=== PATIENT | female | born 1950 | race Caucasian/White ===

== ENCOUNTER → 2024-03-01 07:02 | Outpatient (CLI) | payer MEDICARE, SELFPAY ==
[2024-03-01 07:56] LABS: Add Manual Diff / Slide Review NO; Basophils Absolute Auto 0 /uL (0-100); Basophils Percent Auto 0.2 % (0-2); Eosinophils Absolute Auto 200 /uL (0-450); Eosinophils Percent Auto 4.5 % (2-4); Hematocrit 37.5 % (36-46); Hemoglobin 12.8 g/dL (12.0-16.0); Lymphocytes Absolute Auto 1200 /uL (1100-4500); Lymphocytes Percent Auto 29.3 % (25-40); Mean Corpuscular HGB Conc 34.2 % (30-36); Mean Corpuscular Hemoglobin 31.3 PG (26-34); Mean Corpuscular Volume 91.5 fL (80-100); Monocytes Absolute Auto 500 /uL (0-900); Monocytes Percent Auto 11.5 % (3-14); Neutrophils Absolute Auto 2300 /uL (1500-7000); Neutrophils Percent Auto 54.5 % (50-75); Platelet Count 211 X10^3/uL (150-400); Red Cell Distribution Width 13.1 % (11.6-14.8); White Blood Cell Count 4.2 X10^3/uL (4.5-11.0)
[2024-03-01 08:20] LABS: Creatinine Urine Random 156.02 mg/dL
[2024-03-01 08:23] LABS: Alanine Aminotransferase 24 IU/L (<35); Albumin 4.2 g/dL (3.5-5.0); Albumin Globulin Ratio 1.6 (1.0-2.8); Alkaline Phosphatase 66 U/L (38-126); Aspartate Aminotransferase 26 IU/L (14-36); BUN Creatinine Ratio 15.2 (6-22); Bilirubin Total 1.5 mg/dL (0.2-1.3); Blood Urea Nitrogen 12 mg/dL (7-17); Calcium 9.3 mg/dL (8.4-10.2); Carbon Dioxide 28 mmol/L (22-32); Chloride 102 mmol/L (98-107); Cholesterol 105 mg/dL (140-199); Estimated Glomerular Filt Rate > 60 mL/min (>60); Globulin 2.6 g/dL (1.7-4.1); Glucose 136 mg/dL (80-110); HDL Cholesterol 49 mg/dL (40-60); HEMOLYSIS < 15 (0-50); LDL Cholesterol Calculated 36 mg/dL (<100); Potassium 3.9 mmol/L (3.4-5.1); Sodium 139 mmol/L (137-145); Total Protein 6.8 g/dL (6.3-8.2); Triglycerides 100 mg/dL (35-150)
[2024-03-01 10:52] LABS: Hemoglobin A1C% w Est Avg Glu 6.4 % (4.0-6.0)
== END ==
PROVIDERS: PCP Family Medicine; Referring Provider Family Medicine; Visit Provider Family Medicine
DX: E11.9 Type 2 diabetes mellitus without complications (principal); I25.10 Atherosclerotic heart disease of native coronary artery without angina pectoris; E78.5 Hyperlipidemia, unspecified
CPT/HCPCS: 36415; 80053; 80061; 82043; 82570; 83036; 85025

== ENCOUNTER → 2024-06-07 07:59 | Outpatient (CLI) | payer MEDICARE, SELFPAY ==
[2024-06-07 09:34] LABS: Add Manual Diff / Slide Review NO; Basophils Absolute Auto 0 /uL (0-100); Basophils Percent Auto 0.3 % (0-2); Eosinophils Absolute Auto 200 /uL (0-450); Eosinophils Percent Auto 4.6 % (2-4); Hematocrit 38.6 % (36-46); Hemoglobin 12.9 g/dL (12.0-16.0); Lymphocytes Absolute Auto 1100 /uL (1100-4500); Lymphocytes Percent Auto 23.6 % (25-40); Mean Corpuscular HGB Conc 33.6 % (30-36); Mean Corpuscular Hemoglobin 30.8 PG (26-34); Mean Corpuscular Volume 91.7 fL (80-100); Monocytes Absolute Auto 400 /uL (0-900); Monocytes Percent Auto 7.6 % (3-14); Neutrophils Absolute Auto 3000 /uL (1500-7000); Neutrophils Percent Auto 63.9 % (50-75); Platelet Count 211 X10^3/uL (150-400); Red Cell Distribution Width 13.3 % (11.6-14.8); White Blood Cell Count 4.7 X10^3/uL (4.5-11.0)
[2024-06-07 10:08] LABS: Hemoglobin A1C% w Est Avg Glu 6.1 % (4.0-6.0)
[2024-06-07 10:17] LABS: Alanine Aminotransferase 23 IU/L (<35); Albumin 4.2 g/dL (3.5-5.0); Albumin Globulin Ratio 1.7 (1.0-2.8); Alkaline Phosphatase 58 U/L (38-126); Aspartate Aminotransferase 26 IU/L (14-36); BUN Creatinine Ratio 21.4 (6-22); Bilirubin Total 1.2 mg/dL (0.2-1.3); Blood Urea Nitrogen 15 mg/dL (7-17); Calcium 9.3 mg/dL (8.4-10.2); Carbon Dioxide 29 mmol/L (22-32); Chloride 101 mmol/L (98-107); Estimated Glomerular Filt Rate > 60 mL/min (>60); Globulin 2.5 g/dL (1.7-4.1); Glucose 128 mg/dL (80-110); HEMOLYSIS < 15 (0-50); Potassium 4.6 mmol/L (3.4-5.1); Sodium 138 mmol/L (137-145); Total Protein 6.7 g/dL (6.3-8.2)
[2024-06-07 11:01] LABS: Creatinine Urine Random 64.03 mg/dL
[2024-06-07 11:07] LABS: Microalbumin Urine Random 0.7 mg/dL (0-1.6)
== END ==
PROVIDERS: PCP Family Medicine; Referring Provider Family Medicine; Visit Provider Family Medicine
DX: E11.9 Type 2 diabetes mellitus without complications (principal); I25.10 Atherosclerotic heart disease of native coronary artery without angina pectoris; E78.5 Hyperlipidemia, unspecified
CPT/HCPCS: 36415; 80053; 82043; 82570; 83036; 85025

== ENCOUNTER → 2024-08-25 09:26 | Outpatient (CLI) | payer MEDICARE, SELFPAY ==
--- NOTE | 2024-08-25 09:27 | DI.RAD.S_ITS ---
PROCEDURE: XR FINGER RT MIN 2V INDICATIONS: Right finger pain TECHNIQUE: AP hand, 2 views of the 3rd finger(s) acquired. COMPARISON: None. FINDINGS: Bones: No fractures or dislocations. No suspicious bony lesions. Interphalangeal joint space narrowing with osteophytosis. Soft tissues: No suspicious soft tissue calcifications. Chondrocalcinosis. 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 Chondrocalcinosis, which can be seen in the setting of CPPD, aging, and parathyroid disorders. Dictated by: Aron Ruff M.D. on 08/25/2024 at 12:08 Approved by: Aron Ruff M.D. on 08/25/2024 at 12:09
== END ==
PROVIDERS: PCP Family Medicine; Referring Provider Family Medicine; Visit Provider Family Medicine
DX: M19.041 Primary osteoarthritis, right hand (principal); M11.241 Other chondrocalcinosis, right hand; M79.644 Pain in right finger(s)
CPT/HCPCS: 73140

== ENCOUNTER → 2024-09-19 11:23 | Outpatient (CLI) | payer MEDICARE, SELFPAY ==
[2024-09-19 12:33] LABS: Influenza A - CEPHEID Flu A NEGATIVE (NEGATIVE); Influenza B - CEPHEID Flu B NEGATIVE (NEGATIVE); Respiratory Syncytial Virus Negative (Negative)
[2024-09-19 12:40] LABS: COVID-19 CEPHEID 4-PLEX PCR Negative (Negative)
== END ==
PROVIDERS: PCP Family Medicine; Visit Provider Physician Assistant
DX: R05.9 Cough, unspecified (principal)
CPT/HCPCS: 0241U

== ENCOUNTER → 2024-10-12 10:15 | Outpatient (CLI) | payer MEDICARE, SELFPAY | PROVIDERS: PCP Family Medicine; Visit Provider Student in an Organized Health Care Education/Training Program | DX: J02.9 Acute pharyngitis, unspecified (principal) | CPT/HCPCS: 87070 ==

== ENCOUNTER → 2024-10-12 11:00 | Outpatient (CLI) | payer MEDICARE, SELFPAY ==
--- NOTE | 2024-10-12 11:02 | DI.RAD.S_ITS ---
PROCEDURE: XR CHEST 2V INDICATIONS: 3wk prod cough+wheeze/squeak L ledezma TECHNIQUE: 2 views of the chest were acquired. COMPARISON: None. FINDINGS: Surgical changes and devices: None. Lungs and pleura: Lungs are clear. No pleural effusions or pneumothorax. Mediastinum: Mediastinal contours are normal. Heart size is normal. Bones and chest wall: No suspicious bony abnormalities. Soft tissues appear unremarkable. IMPRESSION: No acute cardiopulmonary abnormality is seen. CT chest could be considered for further evaluation. Dictated by: Ervin Roblero M.D. on 10/12/2024 at 11:15 Approved by: Ervin Roblero M.D. on 10/12/2024 at 11:16
== END ==
PROVIDERS: PCP Family Medicine; Referring Provider Family Medicine; Visit Provider Student in an Organized Health Care Education/Training Program
DX: J02.9 Acute pharyngitis, unspecified (principal); R05.8 Other specified cough
CPT/HCPCS: 71046; 87070

== ENCOUNTER → 2024-10-17 14:29 | Outpatient (CLI) | payer MEDICARE, SELFPAY ==
--- NOTE | 2024-10-17 14:30 | DI.MG.S_ITS ---
MM screening mammo BI: 10/17/2024. BI-RADS: 1 CLINICAL: 74-year old female for bilateral screening mammogram. Tyrer-Cuzick lifetime risk of 2.1%. No personal or first-degree family history of breast cancer. PRIOR EXAMS: No prior examinations available. MAMMOGRAPHY TECHNIQUE: 2D and 3D (tomosynthesis) digital mammographic views obtained, with additional images as needed for full coverage. Current study was also evaluated with a Computer Aided Detection (CAD) system. DENSITY B. There are scattered areas of fibroglandular density. MAMMOGRAPHY FINDINGS Bilateral: No suspicious mass, asymmetry, microcalcification, or other abnormality seen. IMPRESSION: * No evidence of malignancy. RECOMMENDATIONS Bilateral * Annual screening mammography. OVERALL ASSESSMENT CATEGORY BI-RADS-1: Negative. The [employer] recommends annual screening mammography beginning at age 40 for women with average risk of breast cancer. ELECTRONICALLY SIGNED: Thu Herr M.D. on 10/17/2024 at 05:51:00 PM PT Interpreting Station ID: [id number]
== END ==
PROVIDERS: PCP Family Medicine; Referring Provider Family Medicine; Visit Provider Family Medicine
DX: Z12.31 Encounter for screening mammogram for malignant neoplasm of breast (principal)
CPT/HCPCS: 77063; 77067

== ENCOUNTER → 2024-12-04 08:36 | Outpatient (CLI) | payer MEDICARE, SELFPAY ==
[2024-12-04 09:10] LABS: Add Manual Diff / Slide Review NO; Basophils Absolute Auto 0 /uL (0-100); Basophils Percent Auto 0.4 % (0-2); Eosinophils Absolute Auto 300 /uL (0-450); Eosinophils Percent Auto 5.2 % (2-4); Hematocrit 38.8 % (36-46); Hemoglobin 12.8 g/dL (12.0-16.0); Lymphocytes Absolute Auto 1500 /uL (1100-4500); Lymphocytes Percent Auto 28.9 % (25-40); Mean Corpuscular HGB Conc 33.1 % (30-36); Mean Corpuscular Hemoglobin 30.6 PG (26-34); Mean Corpuscular Volume 92.6 fL (80-100); Monocytes Absolute Auto 400 /uL (0-900); Monocytes Percent Auto 7.9 % (3-14); Neutrophils Absolute Auto 3000 /uL (1500-7000); Neutrophils Percent Auto 57.6 % (50-75); Platelet Count 209 X10^3/uL (150-400); Red Blood Cell Count 4.19 X10^6/uL (4.0-5.2); Red Cell Distribution Width 13.4 % (11.6-14.8); White Blood Cell Count 5.2 X10^3/uL (4.5-11.0)
[2024-12-04 09:17] LABS: Hemoglobin A1C% w Est Avg Glu 5.9 % (4.0-6.0)
[2024-12-04 09:39] LABS: Alanine Aminotransferase 18 IU/L (<35); Albumin 4.3 g/dL (3.5-5.0); Albumin Globulin Ratio 1.7 (1.0-2.8); Alkaline Phosphatase 52 U/L (38-126); Aspartate Aminotransferase 26 IU/L (14-36); BUN Creatinine Ratio 23.5 (6-22); Bilirubin Total 1.2 mg/dL (0.2-1.3); Blood Urea Nitrogen 16 mg/dL (7-17); Calcium 9.3 mg/dL (8.4-10.2); Carbon Dioxide 30 mmol/L (22-32); Chloride 102 mmol/L (98-107); Cholesterol 126 mg/dL (140-199); Estimated Glomerular Filt Rate > 60 mL/min (>60); Globulin 2.5 g/dL (1.7-4.1); Glucose 99 mg/dL (70-99); HDL Cholesterol 61 mg/dL (40-60); HEMOLYSIS < 15 (0-50); LDL Cholesterol Calculated 47 mg/dL (<100); Potassium 4.8 mmol/L (3.4-5.1); Sodium 139 mmol/L (137-145); Total Protein 6.8 g/dL (6.3-8.2); Triglycerides 88 mg/dL (35-150)
== END ==
LOC: LAB 08:37
PROVIDERS: PCP Family Medicine; Referring Provider Family Medicine; Visit Provider Family Medicine
DX: D72.819 Decreased white blood cell count, unspecified (principal); E11.9 Type 2 diabetes mellitus without complications; R17 Unspecified jaundice; I25.10 Atherosclerotic heart disease of native coronary artery without angina pectoris; E78.5 Hyperlipidemia, unspecified
CPT/HCPCS: 36415; 80053; 80061; 83036; 85025

== ENCOUNTER → 2024-12-13 08:29 | Outpatient (CLI) | payer MEDICARE, SELFPAY ==
--- NOTE | 2024-12-13 08:43 | DI.CT.S_ITS ---
PROCEDURE: CT LUNG LOW DOSE SCREENING INDICATIONS: hx of tobacco use TECHNIQUE: Noncontrast 2.0-2.5 mm thick sections acquired from the pulmonary apices to the posterior costophrenic angles. 7 mm thick axial MIP, and 5 mm coronal and sagittal reformats were then acquired. For radiation dose reduction, the following was used: automated exposure control, adjustment of mA and/or kV according to patient size. COMPARISON: None. FINDINGS: Image quality: Diagnostic. Lower Neck: No enlarged lymph nodes. Thyroid: No thyroid nodules which require sonographic follow up, per consensus guidelines. Axillae: No enlarged lymph nodes. Chest Wall: Unremarkable. Bones: Unremarkable. Lungs and Pleura: No pneumothorax or pleural effusions. 2-3 mm nodules at the right major fissure. Heart: Heart size is normal. No pericardial effusion. Thoracic Vessels: The aorta and pulmonary arteries demonstrate normal size. Mediastinum and Sanjana: No enlarged lymph nodes. Esophagus: No wall thickening. No hiatal hernia. Upper Abdomen: Visualized upper abdomen solid organs and bowel loops appear normal. IMPRESSION: 2-3 mm right nodules, nonspecific. LUNG-RADS 2; continued annual screening, if eligible. Clinically Significant Non-pulmonary Findings: None. Dictated by: Marcelle Galvez M.D. on 12/13/2024 at 12:57 Approved by: Marcelle Galvez M.D. on 12/13/2024 at 13:04
== END ==
PROVIDERS: PCP Family Medicine; Referring Provider Family Medicine; Visit Provider Family Medicine
DX: Z12.2 Encounter for screening for malignant neoplasm of respiratory organs (principal); F17.210 Nicotine dependence, cigarettes, uncomplicated; R91.8 Other nonspecific abnormal finding of lung field
CPT/HCPCS: 71271

== ENCOUNTER → 2024-12-19 11:18 | Outpatient (CLI) | payer MEDICARE, SELFPAY | LOC: RESP 11:18 | PROVIDERS: PCP Family Medicine; Referring Provider Family Medicine; Visit Provider Family Medicine | DX: Z87.09 Personal history of other diseases of the respiratory system (principal); Z87.891 Personal history of nicotine dependence; J98.8 Other specified respiratory disorders; R94.2 Abnormal results of pulmonary function studies | CPT/HCPCS: 94060; 94726; 94729 ==

== ENCOUNTER → 2025-05-22 14:36 | Outpatient (CLI) | payer MEDICARE, SELFPAY ==
--- NOTE | 2025-06-07 15:44 | DIAB.MNT ---
Initial Diabetes Medical Nutrition Therapy Assessment Name: Romero Candelaria Date: 05/22/25 Time: 3-340p Dx: Type II Diabetes Provider: Joce Romero presents for initial DM visit. States she has been on Mounjaro GLP1 since October 2024. Recent hgA1c of 5.9%, in goal. States she really wants to know if she is making appropriate food choices. Endorses reduced appetite for 3 days after injection, but then appetite seems to return. Regardless, BG are often in goal with >70% in range. States weight loss has been slow to none at times. Endorses some stress over the last 2 years. Diet recall: 6-9a: oats 1/2c cooked OR 1/2 sourdough slice with pb OR eggs and veg 1130-2p: half burger with sweet potato fries OR left overs OR 1/2 sandwich 4p: few bites of beef OR chx with carrots, pumpkin, sweet potato OR 2oz chx with salad sn: pinch of shoestring snack OR pb with 3 pretzels diet soda is most of her fluids water little Anthropometrics: Ht: 63 Wt: 163# 03/2025 PCP--- today reports 155# Weight history: Physical Activity: 0497-2044 steps per day, mostly ADLs. Uses elliptical 5 min BID 3x per week. use to do water aerobics and chair exercises. Self-Monitoring Blood Glucose: Has been wearing CGM for <7 days. Numbers are well within ADA goals for TIR. TIR: <1% very high 7% high 92% in range <1% low 0% very low avmg/dl std dev: 30mg/dl variance: 22.3% Date Pre Post Pre Post Pre Post HS Diabetes Medications: 12.5 Tirzepatide weekly Pertinent Labs: hgA1c; 5.9% Past Medical History: (Last Reviewed 10/12/24 @ 11:50 by Marcela Dunbar PA-C) History of COPD Sinusitis URI (upper respiratory infection) Nutrition Rx: Carbohydrates: Meal:30g Snack:15-30g Nutrition Diagnosis: - Physical inactivity r/t limited exercise aeb pt report Intervention: This participant was very receptive. Provided appropriate educational handouts. Discussed the following topics: Completed intake assessment. Plate Method, meal timing, pairing macronutrients for satiety Recommended servings Role of physical activity in weight management and following provider guidelines for safety Discussed overall, diet is very balanced and portions are either in rec or below rec portion. Would not advise smaller portions, but rather an increase in safe activity. Also encouraged more water intake over diet soda Potential for tracking food if that is helpful vs harmful to her Created SMART goals for patient self-care and success. Goals: Try water aerobics Aim for balanced meals Try to replace more diet soda with water Follow-up: YANA JACKSON follow-up prn per pt retoshia [place] RDN, [facility] Certified Diabetes Care and [employer] P: [phone] Thank you for this referral
== END ==
LOC: DIET 14:36
PROVIDERS: PCP Family Medicine; Referring Provider Family Medicine
DX: E11.9 Type 2 diabetes mellitus without complications (principal); Z71.3 Dietary counseling and surveillance; Z79.85 Long-term (current) use of injectable non-insulin antidiabetic drugs
CPT/HCPCS: 97802

== ENCOUNTER 2025-05-27 19:28 | Inpatient (IN) | payer MEDICARE, SELFPAY ==
[2025-05-27] VITALS (28 sets, daily range): BP systolic 96–153; BP diastolic 50–64; PULSE 83–124; RESP 13–30; TEMP 37–38.2; O2SAT 85–98; BMI 27.4
--- NOTE | 2025-05-27 19:53 | EKG_ITS ---
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
--- NOTE | 2025-05-27 19:54 | DI.CT.S_ITS ---
PROCEDURE: CT ABDOMEN PELVIS W CON INDICATIONS: Abdominal pain, sepsis TECHNIQUE: After the administration of intravenous contrast, axial sections acquired from the lung bases to the pubic symphysis. Coronal and sagittal reformats were performed. For radiation dose reduction, the following was used: automated exposure control, adjustment of mA and/or kV according to patient size. COMPARISON: None. FINDINGS: Image quality: Diagnostic. Lower Chest: Partially visualized right lower lobe ground-glass opacity. ABDOMEN: Liver: No solid mass. Gallbladder: No radiopaque gallstones or wall thickening. Biliary ducts: No biliary dilation. Pancreas: No ductal dilation. Spleen: Size is within normal limits. Adrenal Glands: No adrenal nodules. Kidneys and Ureters: No hydronephrosis. No solid mass. No complex renal cystic lesion which requires follow up. Stomach and Bowel: Normal colonic caliber, without significant wall thickening. Colonic diverticulosis without evidence of acute diverticulitis. Fluid filled small bowel loops in the lower abdomen. Peritoneum: No abnormal intraperitoneal fluid. No free air. Ventral Wall: No significant ventral hernia. Abdominal Nodes: No retroperitoneal or mesenteric adenopathy by size criteria. Vessels: Aorta and inferior vena cava are normal in size. PELVIS: Pelvic Organs: Unremarkable. Bladder: No bladder wall thickening, accounting for underdistention. Pelvic Nodes: No enlarged lymph nodes. Miscellaneous: Small bilateral fat containing inguinal hernias. Bones: No aggressive osseous abnormality. Degenerative changes are present. IMPRESSION: No acute process in the abdomen or pelvis. Fluid-filled small bowel loops in the lower abdomen; findings may be seen with mild enterocolitis although no substantial wall thickening or bowel abnormality is visualized. Partially visualized right lower lobe ground-glass opacity. Recommend dedicated evaluation with CT chest. Dictated by: Debbie Whatley M.D. on 05/27/2025 at 23:11 Approved by: Debbie Whatley M.D. on 05/27/2025 at 23:16
--- NOTE | 2025-05-27 19:54 | DI.RAD.S_ITS ---
PROCEDURE: XR CHEST 1V INDICATIONS: Sepsis TECHNIQUE: One view of the chest was acquired. COMPARISON: [facility], CR, XR CHEST 2V, 10/12/2024, 10:59. FINDINGS: Surgical changes and devices: None. Lungs and pleura: Right lower lung zone consolidative opacity. No substantial pleural effusion or pneumothorax. Mediastinum: Mediastinal contours appear normal. Heart size is normal. Bones and chest wall: No suspicious bony lesions. Overlying soft tissues appear unremarkable. IMPRESSION: Right lower lung zone consolidative opacity. Dictated by: Debbie Whatley M.D. on 05/27/2025 at 23:18 Approved by: Debbie Whatley M.D. on 05/27/2025 at 23:19
--- NOTE | 2025-05-27 19:55 | ED_ITS ---
HPI - General Adult General Chief complaint: Weakness Stated complaint: Pain everywhere, headache, stomach ache, fatigue Time Seen by Provider: 05/27/25 19:52 Source: patient and family Mode of arrival: Wheelchair History of Present Illness HPI narrative: Patient is a 74-year-old female with a past medical history of hyperlipidemia, diabetes, hypertension, comes into the ED from home for evaluation of generalized malaise, generalized muscle aches ongoing persistent for the past 2 days. States that pain to her whole-body started yesterday. She states that she also started developing abdominal pain today, she states that she feels too tired and weak and her entire body hurts which is what brought her into the ED. She denies any true headache visual disturbances chest pain shortness of breath nausea and vomiting or any other GI/ symptoms time. Patient states that she does have a remote appendectomy. Otherwise she denies any recent travel no known sick contacts Related Data Home Medications ?Medication ?Instructions ?Recorded ?Confirmed aspirin 81 mg tablet,delayed 81 mg PO DAILY 10/03/2107/27/24 release (Adult Aspirin Regimen) latanoprost 0.005 % eye drops 1 drp EYE-BOTH DAILY 03/2105/27/25 tizanidine 2 mg capsule 2 mg PO Q8H PRN muscle spasm 02/04/24 05/27/25 brimonidine 0.2 % eye drops 1 drp EYE-BOTH DAILY 03/0705/27/25 Previous Rx's ?Medication ?Instructions ?Recorded loratadine 10 mg tablet (Claritin) 10 mg PO DAILY #14 tabs 10/03/21 blood-glucose sensor (Dexcom G7 #12 ea 04/20/24 Sensor device) albuterol sulfate 1.25 mg/3 mL 1.25 mg (3 mL) inhalati on Q4-6H 06/12/24 solution for nebulization PRN sob #90 mL albuterol sulfate 90 mcg/actuation 1 inh inhalation Q4 -6H PRN 06/16/24 aerosol inhaler bronchospasm #8.5 grams rosuvastatin 20 mg tablet 20 mg PO DAILY #90 tabs 09/26 10/20 Nebulizer with tubing #1 ea 02/06/25 zolpidem 5 mg tablet 5 mg PO BEDTIME PRN insomnia #90 03/22/25 tabs fluticasone furoate 50 1 inh inhalation Q24H #60 ea 04/10/25 mcg-vilanterol 25 mcg/dose inhalation powder (Breo Ellipta) doxepin 3 mg tablet 3 mg PO BEDTIME PRN sleep #3 0 tabs 04/23/25 fluticasone propionate 220 1 puff inhalation BID #12 g davin 05/09/25 mcg/actuation HFA aerosol inhaler tirzepatide 12.5 mg/0.5 mL 12.5 mg (0.5 mL) SUBCUT QWE EK #2 mL 05/21/25 subcutaneous pen injector Allergies Allergy/AdvReac Type Severity Reaction Status Date / Time No Known Drug Allergies Allergy Verified 05/27/25 19:39 Review of Systems Review of Systems Narrative: General: Positive generalized weakness Denies fever, chills, weight loss HEENT: Denies headache, eye drainage, eye irritation, head trauma, sore throat, voice change Cardiovascular: Denies any chest pain, palpitations, tachycardia Respiratory: Denies any shortness of breath, cough, wheeze, stridor GI/: Positive abdominal pain, denies nausea, vomiting, diarrhea, bright red blood per rectum, melanotic stools, urinary frequency, urinary retention, dysuria, hematuria MSK: Positive myalgias Skin: Denies any rashes, lesions, discoloration Neuro: Denies any headache, lightheadedness, dizziness, fainting, weakness Psych: Denies SI/HI Patient History Medical History (Updated 05/27/25 @ 23:50 by Gustavo Jaime DO) Sinusitis History of COPD URI (upper respiratory infection) Surgical History (Updated 02/09/25 @ 10:17 by Ebonie Hobson MD) History of bladder surgery History of appendectomy Social History Smoking Status: Never smoker Smoking Status: Never smoker Exam Narrative Exam Narrative: General: Cooperative, well-developed, not in acute distress HEENT: Normocephalic, atraumatic, PERRLA, normal sclera, eyelids normal Neck: Active full range of motion, atraumatic Chest: Normal to inspection, negative crepitus, no overlying erythema ecchymosis Respiratory: Normal respiratory effort, not in acute respiratory distress, clear to auscultation bilaterally negative cough, wheeze, tachypnea, rhonchi, rales Cardiology: Regular rate rhythm negative gallop, murmur, rubs GI/: Mild tenderness to palpation abdomen diffuse, soft, non rigid, normal to inspection, exam deferred MSK: Full active range of motion in all 4 extremities, atraumatic, no tenderness to palpation of any bony prominences Skin: No rashes or lesions noted Neuro: Alert awake oriented x3, moves all 4 extremities spontaneously, cranial nerves intact, able to answer all questions appropriately follows commands appropriately Psych: Cooperative, negative suicidal or homicidal ideations Initial Vital Signs Initial Vital Signs: Vital Signs Temperature 100.8 F H 05/27/25 19:42 Pulse Rate 124 H 05/27/25 19:42 Respiratory Rate 20 05/27/25 19:42 Blood Pressure 133/60 05/27/25 19:42 Pulse Oximetry 92 05/27/25 19:42 Oxygen Delivery Method Room Air 05/27/25 19:42 Course Orders Ordered: ED Orders 05/27/25 19:53 Respiratory Panel (Film Array) Stat EKG-12 Lead Stat 05/27/25 19:54 CT abdomen pelvis w con Stat CXR [XR chest 1V] Stat 05/27/25 20:04 Complete Blood Count AUTO DIFF Stat Comprehensive Metabolic Panel Stat Lactate (Lactic Acid) Stat Lipase Stat MAG [Magnesium] Stat NT-proBNP (BNP-Adult 18+) Stat PTT Partial Thromboplastin [place] Stat Procalcitonin Stat Prothrombin Time INR Stat Troponin & CK Cardiac Panel Stat 05/27/25 20:15 Blood Culture Stat 05/27/25 22:00 Urinalysis and Microscopic Stat Discontinued Medications Sodium Chloride (Normal Saline 0.9%) 2,109.21 mls @ 1,406.14 mls/hr 30 ml/kg infuse over 90 min (2109.21 ml) IV NOW ONE Stop: 05/27/25 21:22 Last Infusion: 05/27/25 22:50 Dose: Infused Documented By: Admin: 05/27/25 20:13 Dose: 1,406.14 mls/hr Documented By: BZ Acetaminophen (Ofirmev) 1,000 mg in 100 mls @ 400 mls/hr IV NOW ONE Stop: 05/27/25 20:37 Last Infusion: 05/27/25 22:10 Dose: Infused Documented By: Admin: 05/27/25 21:49 Dose: 400 mls/hr Documented By: BZ Ceftriaxone Sodium 1,000 mg/ (Sodium Chloride) 100 mls @ 200 mls/hr IV NOW ONE Stop: 05/27/25 23:31 Doxycycline Hyclate 100 mg/ (Sodium Chloride) 100 mls @ 100 mls/hr IV NOW ONE Stop: 05/27/25 23:31 Morphine Sulfate (Morphine 4 Mg/Ml Inj) 4 mg IV NOW ONE Stop: 05/27/25 20:07 Last Admin: 05/27/25 20:19 Dose: 4 mg Documented By: MALIKA Ondansetron HCl (Ondansetron 4 Mg/2 Ml Inj) 4 mg IV NOW ONE Stop: 05/27/25 20:07 Last Admin: 05/27/25 20:19 Dose: 4 mg Documented By: MALIKA Vital Signs Vital signs: Vital Signs - 8 hr 05/27/25 19:42 05/27/25 20:07 05/27/25 20:07 Temperature 100.8 F H Pulse Rate 124 H 120 H Respiratory Rate 20 24 Blood Pressure 133/60 146/63 H Pulse Oximetry 92 92 Oxygen Delivery Method Room Air Oxygen Flow Rate 05/27/25 20:09 05/27/25 20:09 05/27/25 20:17 Temperature Pulse Rate 121 H Respiratory Rate 19 Blood Pressure 133/64 125/60 Pulse Oximetry 93 Oxygen Delivery Method Oxygen Flow Rate 05/27/25 20:17 05/27/25 20:20 05/27/25 20:20 Temperature Pulse Rate 118 H 114 H Respiratory Rate 20 28 H Blood Pressure 153/64 H Pulse Oximetry 92 93 Oxygen Delivery Method Oxygen Flow Rate 05/27/25 20:30 05/27/25 20:30 05/27/25 20:30 Temperature Pulse Rate 114 H Respiratory Rate 13 Blood Pressure 135/63 Pulse Oximetry 86 L 85 L Oxygen Delivery Method Room Air Oxygen Flow Rate 05/27/25 20:58 05/27/25 20:59 05/27/25 20:59 Temperature Pulse Rate 110 H 110 H Respiratory Rate 25 H 22 Blood Pressure 137/61 Pulse Oximetry 93 92 Oxygen Delivery Method Nasal Cannula Oxygen Flow Rate 2 05/27/25 21:00 05/27/25 21:00 05/27/25 21:10 Temperature Pulse Rate 110 H Respiratory Rate 24 Blood Pressure 123/59 L 122/55 L Pulse Oximetry 92 Oxygen Delivery Method Nasal Cannula Oxygen Flow Rate 2 05/27/25 21:10 05/27/25 21:20 05/27/25 21:20 Temperature Pulse Rate 109 H 105 H Respiratory Rate 24 19 Blood Pressure 121/60 Pulse Oximetry 90 L 98 Oxygen Delivery Method Nasal Cannula Oxygen Flow Rate 2 05/27/25 21:30 05/27/25 21:30 05/27/25 22:00 Temperature Pulse Rate 104 H 103 H Respiratory Rate 25 H 25 H Blood Pressure 129/60 Pulse Oximetry 98 96 Oxygen Delivery Method Oxygen Flow Rate 05/27/25 22:01 05/27/25 22:01 05/27/25 22:10 Temperature Pulse Rate 103 H 102 H Respiratory Rate 30 H 27 H Blood Pressure 129/59 L Pulse Oximetry 96 96 Oxygen Delivery Method Nasal Cannula Oxygen Flow Rate 2 05/27/25 22:10 05/27/25 22:20 05/27/25 22:20 Temperature Pulse Rate 99 H Respiratory Rate 22 Blood Pressure 111/54 L 110/55 L Pulse Oximetry 95 Oxygen Delivery Method Nasal Cannula Oxygen Flow Rate 2 05/27/25 22:30 05/27/25 22:30 05/27/25 22:39 Temperature Pulse Rate 98 H 97 H Respiratory Rate 23 23 Blood Pressure 113/53 L Pulse Oximetry 95 95 Oxygen Delivery Method Nasal Cannula Oxygen Flow Rate 2 05/27/25 22:40 05/27/25 22:40 05/27/25 22:49 Temperature 98.6 F Pulse Rate 97 H Respiratory Rate 23 Blood Pressure 113/55 L Pulse Oximetry 95 Oxygen Delivery Method Nasal Cannula Oxygen Flow Rate 2 05/27/25 22:50 05/27/25 22:50 05/27/25 22:53 Temperature Pulse Rate 94 H 94 H Respiratory Rate 23 Blood Pressure 101/51 L Pulse Oximetry 95 95 Oxygen Delivery Method Nasal Cannula Oxygen Flow Rate 2 05/27/25 22:53 05/27/25 23:00 05/27/25 23:00 Temperature Pulse Rate 93 H Respiratory Rate 22 Blood Pressure 115/53 L 107/53 L Pulse Oximetry 95 Oxygen Delivery Method Nasal Cannula Oxygen Flow Rate 2 05/27/25 23:10 05/27/25 23:10 Temperature Pulse Rate 92 H Respiratory Rate 22 Blood Pressure 109/52 L Pulse Oximetry 95 Oxygen Delivery Method Nasal Cannula Oxygen Flow Rate 2 Medical Decision Making Lab Data 05/27/25 20:04 05/27/25 20:04 Labs: Lab Results 05/27/25 05/27/25 05/27/25 Range/Units 19:53 20:04 22:00 WBC 8.8 (4.5-11.0) X10^3/uL RBC 4.01 (4.0-5.2) X10^6/uL Hgb 12.4 (12.0-16.0) g/dL Hct 36.3 (36-46) % MCV 90.6 (80-100) fL MCH 31.0 (26-34) PG MCHC 34.2 (30-36) % RDW 13.4 (11.6-14.8) % Plt Count 176 (150-400) X10^3/uL Neut % (Auto) 84.2 H (50-75) % Lymph % (Auto) 7.6 L (25-40) % Sawyer % (Auto) 7.9 (3-14) % Eos % (Auto) 0.1 L (2-4) % Baso % (Auto) 0.2 (0-2) % Neut # (Auto) 7400 H (5768-5646) /uL Lymph # (Auto) 700 L (2906-2288) /uL Sawyer # (Auto) 700 (0-900) /uL Eos # (Auto) 0 (0-450) /uL Baso # (Auto) 0 (0-100) /uL PT 14.4 H (9.4-12.5) SECONDS INR 1.3 (0.9-1.3) APTT 28 (25.1-36.5) SECONDS Sodium 136 L (137-145) mmol/L Potassium 3.9 (3.4-5.1) mmol/L Chloride 102 (98-107) mmol/L Carbon Dioxide 24 (22-32) mmol/L BUN 13 (7-17) mg/dL Creatinine 0.75 (0.52-1.04) mg/dL Estimated GFR > 60 (>60) mL/min BUN/Creatinine Ratio 17.3 (6-22) Glucose 146 H (70-99) mg/dL Lactate 1.1 (0.7-2.1) mmol/L Calcium 9.2 (8.4-10.2) mg/dL Magnesium 1.8 (1.6-2.3) mg/dL Total Bilirubin 2.9 H (0.2-1.3) mg/dL AST 33 (14-36) IU/L ALT 25 (<35) IU/L Alkaline Phosphatase 65 (38-126) U/L Total Creatine Kinase 27 L (30-135) U/L Troponin I < 0.012 (0.01-0.034) ng/mL NT-Pro-B Natriuret Pep 252 H (<125) pg/mL Total Protein 7.7 (6.3-8.2) g/dL Albumin 4.3 (3.5-5.0) g/dL Globulin 3.4 (1.7-4.1) g/dL Albumin/Globulin Ratio 1.3 (1.0-2.8) Lipase 36 (23-300) U/L Procalcitonin 0.205 (<0.5) ng/mL Urine Color Yellow Urine Appearance Clear Urine pH 5.0 (4.5-8.0) Ur Specific [place] 1.010 (1.000-1.035) Urine Protein Negative (Negative) Urine Glucose (UA) Negative (Negative) g/dL Urine Ketones 1+ H (NEGATIVE) Urine Occult Blood Trace-intact (Negative) Urine Nitrate Negative (Negative) Urine Bilirubin Negative (NEGATIVE) Urine Urobilinogen 4.0 H (0.2) E.U./dL Ur Leukocyte Esterase Negative (NEGATIVE) Urine RBC 0-1/hpf (0-5/HPF) Urine WBC None seen (0-5/HPF) Ur Squamous Epith Cells 0-1 /hpf (0-5/HPF) Urine Bacteria None seen (None) Ur Culture Indicated? Cult not indicated Vol Urine Centrifuged 10ml (spun) Chlamy pneumoniae PCR Not detected (Not Detect) Adenovirus (PCR) Not detected (Not Detect) B. pertussis DNA (PCR) Not detected (Not Detect) B.parapertussis DNA PCR Not detected (Not Detecte) Coronavirus OC43 (PCR) Not detected (Not Detect) Coronavirus HKU1 (PCR) Not detected (Not Detect) Coronavirus 229E (PCR) Not detected (Not Detect) SARS-CoV-2 (PCR) Not detected (Not Detecte) Coronavirus NL63 (PCR) Not detected (Not Detect) Human Metapneumovir PCR Not detected (Not Detect) Influenza Type A (PCR) Not detected (Not Detect) Influenza Type B (PCR) Not detected (Not Detect) M. pneumoniae (PCR) Not detected (Not Detect) Parainfluenza 1 (PCR) Not detected (Not Detect) Parainfluenza 2 (PCR) Not detected (Not Detect) Parainfluenza 3 (PCR) Not detected (Not Detect) Parainfluenza 4 (PCR) Not detected (Not Detect) RSV (PCR) Not detected (Not Detect) Entero/Rhino (PCR) Not detected (Not Detect) MDM Narrative Medical decision making narrative: Patient is a 74-year-old female with a past medical history of diabetes type 2, hypertension, hyperlipidemia, coming into the ED from home for evaluation of generalized malaise generalized weakness diffuse abdominal pain started proximally 2 days ago, at time of initial evaluation patient meeting sepsis criteria given tachycardia febrile, sepsis workup was ordered, we will hold off on antibiotics at this time given no known source. Patient states she does have a remote history of appendectomy he denies any recent travel no known sick contacts. Patient's lab work reviewed no leukocytosis, no severe electrolyte abnormality, creatinine normal, bilirubin was noted to be slightly elevated at 2.[address] scan of the abdomen and pelvis without any signs of acute cholecystitis or any other intra-abdominal processes, urinalysis not consistent with acute urinary tract infection, troponin negative, BNP only slightly elevated at 252, chest x-ray does show right-sided pneumonia. Respiratory panel negative Rocephin doxy has been ordered, patient is requiring 2 L nasal cannula, but she is speaking full sentences protecting airway given patient requiring oxygen we will require admission for continued treatment of pneumonia and oxygen administration The patient's management plan was discussed Dr. Macario, who agrees to admit the patient to their service and assumes care of this patient at this time. Full admission orders will be placed by the primary team. Discharge Plan Departure Patient Disposition: Admitted As Inpatient Clinical Impression: Pneumonia, Acute hypoxemic respiratory failure
--- NOTE | 2025-05-27 20:08 | EKG_ITS ---
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
[2025-05-27] MEDS: SODIUM CHLORIDE 0.9% 2,109.21 ML 1406.14 ML IV (20:13)
[2025-05-27 20:19] LABS: Add Manual Diff / Slide Review NO; Hematocrit 36.3 % (36-46); Hemoglobin 12.4 g/dL (12.0-16.0); Lymphocytes Absolute Auto 700 /uL (1100-4500); Mean Corpuscular HGB Conc 34.2 % (30-36); Mean Corpuscular Hemoglobin 31.0 PG (26-34); Mean Corpuscular Volume 90.6 fL (80-100); Platelet Count 176 X10^3/uL (150-400)
[2025-05-27] MEDS: MORPHINE 4 MG/ML INJ IV (20:19)
[2025-05-27] MEDS: ONDANSETRON 4 MG/2 ML INJ IV (20:19)
[2025-05-27 20:23] LABS: INR 1.3 (0.9-1.3); Prothrombin Time 14.4 SECONDS (9.4-12.5)
[2025-05-27 20:25] LABS: PTT Partial Thromboplastin Tim 28 SECONDS (25.1-36.5)
[2025-05-27 20:28] LABS: Alanine Aminotransferase 25 IU/L (<35); Albumin 4.3 g/dL (3.5-5.0); Albumin Globulin Ratio 1.3 (1.0-2.8); Alkaline Phosphatase 65 U/L (38-126); Blood Urea Nitrogen 13 mg/dL (7-17); Calcium 9.2 mg/dL (8.4-10.2); Carbon Dioxide 24 mmol/L (22-32); Chloride 102 mmol/L (98-107); Creatine Kinase 27 U/L (30-135); Estimated Glomerular Filt Rate > 60 mL/min (>60); Globulin 3.4 g/dL (1.7-4.1); Glucose 146 mg/dL (70-99); HEMOLYSIS < 15 (0-50); Lactate (Lactic Acid) 1.1 mmol/L (0.7-2.1); Potassium 3.9 mmol/L (3.4-5.1); Sodium 136 mmol/L (137-145); Total Protein 7.7 g/dL (6.3-8.2)
[2025-05-27 20:29] LABS: Lipase 36 U/L (23-300); Magnesium 1.8 mg/dL (1.6-2.3)
[2025-05-27 20:40] LABS: NT-proBNP (BNP-Adult 18+) 252 pg/mL (<125); Troponin I < 0.012 ng/mL (0.01-0.034)
[2025-05-27 20:45] LABS: Procalcitonin 0.205 ng/mL (<0.5)
[2025-05-27 21:35] LABS: Coronavirus NL 63 Not Detected (Not Detect); SARS- CoV-2 Not Detected (Not Detecte)
[2025-05-27] MEDS: ACETAMINOPHEN IV 1,000 MG/100 ML VIAL 400 MG IV (21:49)
[2025-05-27 22:22] LABS: Appearance Urine UA CLEAR; Bilirubin Urine UA NEGATIVE (NEGATIVE); Color Urine UA YELLOW; Glucose Urine UA NEGATIVE (Negative); Ketones Urine UA 1+ (NEGATIVE); Leukocyte Esterase Urine UA NEGATIVE (NEGATIVE); Nitrite Urine UA NEGATIVE (Negative); Occult Blood Urine UA TRACE-INTACT (Negative); Protein Urine UA NEGATIVE (Negative); Specific Gravity Urine UA 1.010 (1.000-1.035); Urobilinogen Urine UA 4.0 E.U./dL (0.2)
[2025-05-27 22:25] LABS: pH Urine UA 5.0 (4.5-8.0)
[2025-05-27 22:33] LABS: Culture Indicated Urine Cult Not Indicated
[2025-05-28] VITALS (36 sets, daily range): BP systolic 100–148; BP diastolic 52–65; PULSE 76–105; RESP 13–29; TEMP 36.1–36.4; O2SAT 92–99; BMI 27.4
[2025-05-28] MEDS: DOXYCYCLINE 100 MG in SODIUM CHLORIDE 0.9% 100 ML IV ×2 (01:00→15:07)
--- NOTE | 2025-05-28 03:27 | PM.HP.1 ---
History of Present Illness History of Present Illness Date Patient Seen: 05/28/25 Time Patient Seen: 03:27 Chief complaint: Pain everywhere, headache, stomach ache, fatigue Narrative: 74-year-old female with past medical history of hhn-fpagblx-xzpuvzqts diabetes, hyperlipidemia, hypertension who presented to ER with generalized weakness and abdominal pain. Per the patient's report patient does have a history of appendectomy denies any other abdominal surgery. The patient states that over the last 2 days the patient has generalized abdominal pain with generalized weakness. The patient admits to having mild cough and some shortness of breath but denies any fever, chills, nausea, vomiting, diarrhea or chest pain. In the emergency room, the patient was hemodynamically stable but was requiring 2 L of oxygen per nasal cannula. WBC was normal at 8 as well as lactic acid. Chest x-ray suggest right-sided pneumonia. CT abdomen shows no acute finding but does also suggest pneumonia. UA is negative the patient was given Rocephin and doxycycline. FOR[facility] Medical History (Updated 05/27/25 @ 23:50 by Gustavo Jaime DO) Sinusitis History of COPD URI (upper respiratory infection) Surgical History (Updated 02/09/25 @ 10:17 by Ebonie Hobson MD) History of bladder surgery History of appendectomy Social History Smoking Status: Never smoker Meds Home Medications and Allergies Home Medications ?Medication ?Instructions ?Recorded ?Confirmed ?Type aspirin 81 mg tablet,delayed 81 mg PO DAILY 10/03/21 05/27/25 History release (Adult Aspirin Regimen) loratadine 10 mg tablet (Claritin) 10 mg PO DAILY #14 tabs 10/03/21 05/27/25 Rx latanoprost 0.005 % eye drops 1 drp EYE-BOTH DAILY 02/04/24 05/27/25 History tizanidine 2 mg capsule 2 mg PO Q8H PRN muscle spasm 02/04/24 05/27/25 History brimonidine 0.2 % eye drops 1 drp EYE-BOTH DAILY 03/07/24 05/27/25 History blood-glucose sensor (Dexcom G7 #12 ea 04/20/24 05/27/25 Rx Sensor device) albuterol sulfate 1.25 mg/3 mL 1.25 mg (3 mL) inhalation Q4-6H 06/12/24 05/27/25 Rx solution for nebulization PRN sob #90 mL albuterol sulfate 90 mcg/actuation 1 inh inhalation Q4-6H PRN 06/16/24 05/27/25 Rx aerosol inhaler bronchospasm #8.5 grams rosuvastatin 20 mg tablet 20 mg PO DAILY #90 tabs 10/09/24 05/27/25 Rx Nebulizer with tubing #1 ea 02/06/25 05/27/25 Rx zolpidem 5 mg tablet 5 mg PO BEDTIME PRN insomnia #90 03/22/25 05/27/25 Rx tabs fluticasone furoate 50 1 inh inhalation Q24H #60 ea 04/10/25 05/27/25 Rx mcg-vilanterol 25 mcg/dose inhalation powder (Breo Ellipta) doxepin 3 mg tablet 3 mg PO BEDTIME PRN sleep #30 tabs 04/23/25 05/27/25 Rx fluticasone propionate 220 1 puff inhalation BID #12 grams 05/09/25 05/27/25 Rx mcg/actuation HFA aerosol inhaler tirzepatide 12.5 mg/0.5 mL 12.5 mg (0.5 mL) SUBCUT QWEEK #2 mL 05/21/25 05/27/25 Rx subcutaneous pen injector Allergies Allergy/AdvReac Type Severity Reaction Status Date / Time No Known Drug Allergies Allergy Verified 05/27/25 19:39 Review of Systems Review of Systems ROS: Yes All systems reviewed with the patient and are negative except as otherwise documented Exam Vital Signs (past 8 hours): - 05/27/25 19:42 05/27/25 20:07 05/27/25 20:07 Temperature 100.8 F H Pulse Rate 124 H 120 H Respiratory Rate 20 24 Blood Pressure 133/60 146/63 H Pulse Oximetry 92 92 Oxygen Delivery Method Room Air Oxygen Flow Rate 05/27/25 20:09 05/27/25 20:09 05/27/25 20:17 Temperature Pulse Rate 121 H Respiratory Rate 19 Blood Pressure 133/64 125/60 Pulse Oximetry 93 Oxygen Delivery Method Oxygen Flow Rate 05/27/25 20:17 05/27/25 20:20 05/27/25 20:20 Temperature Pulse Rate 118 H 114 H Respiratory Rate 20 28 H Blood Pressure 153/64 H Pulse Oximetry 92 93 Oxygen Delivery Method Oxygen Flow Rate 05/27/25 20:30 05/27/25 20:30 05/27/25 20:30 Temperature Pulse Rate 114 H Respiratory Rate 13 Blood Pressure 135/63 Pulse Oximetry 86 L 85 L Oxygen Delivery Method Room Air Oxygen Flow Rate 05/27/25 20:58 05/27/25 20:59 05/27/25 20:59 Temperature Pulse Rate 110 H 110 H Respiratory Rate 25 H 22 Blood Pressure 137/61 Pulse Oximetry 93 92 Oxygen Delivery Method Nasal Cannula Oxygen Flow Rate 2 05/27/25 21:00 05/27/25 21:00 05/27/25 21:10 Temperature Pulse Rate 110 H Respiratory Rate 24 Blood Pressure 123/59 L 122/55 L Pulse Oximetry 92 Oxygen Delivery Method Nasal Cannula Oxygen Flow Rate 2 05/27/25 21:10 05/27/25 21:20 05/27/25 21:20 Temperature Pulse Rate 109 H 105 H Respiratory Rate 24 19 Blood Pressure 121/60 Pulse Oximetry 90 L 98 Oxygen Delivery Method Nasal Cannula Oxygen Flow Rate 2 05/27/25 21:30 05/27/25 21:30 05/27/25 22:00 Temperature Pulse Rate 104 H 103 H Respiratory Rate 25 H 25 H Blood Pressure 129/60 Pulse Oximetry 98 96 Oxygen Delivery Method Oxygen Flow Rate 05/27/25 22:01 05/27/25 22:01 05/27/25 22:10 Temperature Pulse Rate 103 H 102 H Respiratory Rate 30 H 27 H Blood Pressure 129/59 L Pulse Oximetry 96 96 Oxygen Delivery Method Nasal Cannula Oxygen Flow Rate 2 05/27/25 22:10 05/27/25 22:20 05/27/25 22:20 Temperature Pulse Rate 99 H Respiratory Rate 22 Blood Pressure 111/54 L 110/55 L Pulse Oximetry 95 Oxygen Delivery Method Nasal Cannula Oxygen Flow Rate 2 05/27/25 22:30 05/27/25 22:30 05/27/25 22:39 Temperature Pulse Rate 98 H 97 H Respiratory Rate 23 23 Blood Pressure 113/53 L Pulse Oximetry 95 95 Oxygen Delivery Method Nasal Cannula Oxygen Flow Rate 2 05/27/25 22:40 05/27/25 22:40 05/27/25 22:49 Temperature 98.6 F Pulse Rate 97 H Respiratory Rate 23 Blood Pressure 113/55 L Pulse Oximetry 95 Oxygen Delivery Method Nasal Cannula Oxygen Flow Rate 2 05/27/25 22:50 05/27/25 22:50 05/27/25 22:53 Temperature Pulse Rate 94 H 94 H Respiratory Rate 23 Blood Pressure 101/51 L Pulse Oximetry 95 95 Oxygen Delivery Method Nasal Cannula Oxygen Flow Rate 2 05/27/25 22:53 05/27/25 23:00 05/27/25 23:00 Temperature Pulse Rate 93 H Respiratory Rate 22 Blood Pressure 115/53 L 107/53 L Pulse Oximetry 95 Oxygen Delivery Method Nasal Cannula Oxygen Flow Rate 2 05/27/25 23:10 05/27/25 23:10 05/27/25 23:20 Temperature Pulse Rate 92 H Respiratory Rate 22 Blood Pressure 109/52 L 109/53 L Pulse Oximetry 95 Oxygen Delivery Method Nasal Cannula Oxygen Flow Rate 2 05/27/25 23:20 05/27/25 23:30 05/27/25 23:30 Temperature Pulse Rate 90 87 Respiratory Rate 20 22 Blood Pressure 96/50 L Pulse Oximetry 95 95 Oxygen Delivery Method Oxygen Flow Rate 05/27/25 23:40 05/27/25 23:40 05/27/25 23:50 Temperature Pulse Rate 88 Respiratory Rate 21 Blood Pressure 120/58 L 120/57 L Pulse Oximetry 91 Oxygen Delivery Method Oxygen Flow Rate 05/27/25 23:50 05/28/25 00:00 05/28/25 00:00 Temperature Pulse Rate 83 84 Respiratory Rate 20 20 Blood Pressure 121/58 L Pulse Oximetry 95 95 Oxygen Delivery Method Oxygen Flow Rate 05/28/25 00:10 05/28/25 00:10 05/28/25 00:30 Temperature Pulse Rate 82 81 Respiratory Rate 17 17 Blood Pressure 100/52 L Pulse Oximetry 96 95 Oxygen Delivery Method Oxygen Flow Rate 05/28/25 01:00 Temperature Pulse Rate 79 Respiratory Rate 19 Blood Pressure Pulse Oximetry 96 Oxygen Delivery Method Nasal Cannula Oxygen Flow Rate 2 Oxygen Delivery Method Nasal Cannula Oxygen Flow Rate 2 Narrative Exam Narrative: Physical Exam: GENERAL: The patient is not in any acute distressed. Awake and alert. HEENT: Nonicteric sclerae, PERRLA, EOMI. Oropharynx clear. Moist mucous membranes. Conjunctivae appear well perfused. HEART: Regular rate and rhythm without murmurs. No lower extremities edema. LUNGS: Clear to auscultation bilaterally. No wheezing, crackles or rhonchi ABDOMEN: Soft, positive bowel sounds, nontender. SKIN: No rash, no excessive bruising, petechiae, or purpura. NEUROLOGIC: AxO x 3. Cranial nerves II-XII intact without motor/sensory deficit. Objective Labs 05/27/25 20:04 05/27/25 20:04 Labs: Laboratory Results - last 24 hr 05/27/25 05/27/25 05/27/25 19:53 20:04 22:00 WBC 8.8 RBC 4.01 Hgb 12.4 Hct 36.3 MCV 90.6 MCH 31.0 MCHC 34.2 RDW 13.4 Plt Count 176 Neut % (Auto) 84.2 H Lymph % (Auto) 7.6 L [place] % (Auto) 7.9 Eos % (Auto) 0.1 L Baso % (Auto) 0.2 Neut # (Auto) 7400 H Lymph # (Auto) 700 L [place] # (Auto) 700 Eos # (Auto) 0 Baso # (Auto) 0 PT 14.4 H INR 1.3 APTT 28 Sodium 136 L Potassium 3.9 Chloride 102 Carbon Dioxide 24 BUN 13 Creatinine 0.75 Estimated GFR > 60 BUN/Creatinine Ratio 17.3 Glucose 146 H Lactate 1.1 Calcium 9.2 Magnesium 1.8 Total Bilirubin 2.9 H AST 33 ALT 25 Alkaline Phosphatase 65 Total Creatine Kinase 27 L Troponin I < 0.012 NT-Pro-B Natriuret Pep 252 H Total Protein 7.7 Albumin 4.3 Globulin 3.4 Albumin/Globulin Ratio 1.3 Lipase 36 Procalcitonin 0.205 Urine Color Yellow Urine Appearance Clear Urine pH 5.0 Ur Specific [place] 1.010 Urine Protein Negative Urine Glucose (UA) Negative Urine Ketones 1+ H Urine Occult Blood Trace-intact Urine Nitrate Negative Urine Bilirubin Negative Urine Urobilinogen 4.0 H Ur Leukocyte Esterase Negative Urine RBC 0-1/hpf Urine WBC None seen Ur Squamous Epith Cells 0-1 /hpf Urine Bacteria None seen Ur Culture Indicated? Cult not indicated Vol Urine Centrifuged 10ml (spun) Chlamy pneumoniae PCR Not detected Adenovirus (PCR) Not detected B. pertussis DNA (PCR) Not detected B.parapertussis DNA PCR Not detected Coronavirus OC43 (PCR) Not detected Coronavirus HKU1 (PCR) Not detected Coronavirus 229E (PCR) Not detected SARS-CoV-2 (PCR) Not detected Coronavirus NL63 (PCR) Not detected Human Metapneumovir PCR Not detected Influenza Type A (PCR) Not detected Influenza Type B (PCR) Not detected M. pneumoniae (PCR) Not detected Parainfluenza 1 (PCR) Not detected Parainfluenza 2 (PCR) Not detected Parainfluenza 3 (PCR) Not detected Parainfluenza 4 (PCR) Not detected RSV (PCR) Not detected Entero/Rhino (PCR) Not detected Assessment & Plan Assessment & Plan narrative: 74-year-old female with past medical history of oci-tykdkiu-obpmizdrq diabetes, hyperlipidemia, hypertension who presented to ER with generalized weakness and abdominal pain. Per the patient's report patient does have a history of appendectomy denies any other abdominal surgery. The patient states that over the last 2 days the patient has generalized abdominal pain with generalized weakness. The patient admits to having mild cough and some shortness of breath but denies any fever, chills, nausea, vomiting, diarrhea or chest pain. In the emergency room, the patient was hemodynamically stable but was requiring 2 L of oxygen per nasal cannula. WBC was normal at 8 as well as lactic acid. Chest x-ray suggest right-sided pneumonia. CT abdomen shows no acute finding but does also suggest pneumonia. UA is negative the patient was given Rocephin and doxycycline. Community-acquired pneumonia. Admit the patient to medical inpatient. Continue IV doxycycline and ceftriaxone. Patient not septic at this time. Acute respiratory failure with hypoxemia. Patient currently on 2 L of oxygen per nasal cannula. Likely due to pneumonia. Treat as above and wean down oxygen as able. COPD. Patient denies any requirement of oxygen at home. Will start prednisone and DuoNebs as there may be a component of mild COPD exacerbation. Insulin-dependent diabetes. Monitor glucose and treat with subcu insulin as needed. Hypertension. Monitor blood pressure and resume home medication accordingly. DVT prophylaxis heparin subcu. CODE STATUS full code. Disposition likely home in 2days - As the provider of this telehealth evaluation, requested by the patient's evaluating physician, I attest that I introduced myself to the patient, provided my credentials and determined that telemedicine via a real-time, 2 way interactive audio and video platform is an appropriate and effective means of providing this service. - I reviewed the patient's chart and had a discussion with the member of the patient's treatment team. - The patient and I mutually agreed with continuation of this evaluation via telemedicine. The patient consented for the telemedicine evaluation. - This virtual encounter was taken place from [place] by Dr. Jose A Macario. The patient was evaluated at [facility]. The encounter was approximately 35 minutes. The nurse was present during the entire time of the encounter and was able to assists with exam/stethoscope. Time-Based Coding :: [TOTAL MINUTES] spent with patient and on the chart (including review of chart, obtaining history, exam, reviewing outside data, placing orders, documenting exam and treatment plan, and counseling patient) on [DATE].
--- NOTE | 2025-05-28 04:46 | PC.NURSE ---
Pt states that she has improved since arrival to ER. We will continue to monitor while in the department.
[2025-05-28] MEDS: SODIUM CHLORIDE 0.9% 1,000 ML 75 ML IV ×2 (04:55→18:51)
[2025-05-28] MEDS: BUDESONIDE 0.5 MG/2 ML NEB INH ×2 (09:04→20:14)
[2025-05-28] MEDS: ALBUTEROL 2.5 MG/3 ML NEB (ADULT) INH ×2 (09:04→20:14)
[2025-05-28] MEDS: ATORVASTATIN 20 MG TABLET 40 MG PO (09:05)
[2025-05-28] MEDS: HEPARIN 5,000 UNIT/ML VIAL 5000 UNIT SUBCUT ×2 (09:06→21:28)
[2025-05-28] MEDS: ASPIRIN EC 81 MG TABLET PO (09:06)
[2025-05-28] MEDS: LORATADINE 10 MG TABLET PO (10:28)
--- NOTE | 2025-05-28 11:46 | CM.DANOTE ---
DCP Assessment Note: Pt is a 74yo female, resident of [place], is admitted for pneumonia and COPD exacerbation. Pt lives in a house with her spouse, Magen. Pt's Primary Care Provider is Dr. Ebonie Hobson and insurance is [employer]. Reviewed chart and discussed with multidisciplinary team pt's medical status and initial discharge needs. Per hospitalist, pt to be admitted for IV abx and duoneb treatment. She is currently requiring 2L O2. DCP met w/patient at bedside; introduced self and role. Patient was found in bed, alert and oriented, cooperative with assessment. Pt confirmed living situation and good support in . Pt expressed preference in discharge home when cleared. She states she is very indep at home, does not use any O2 at home. Pt has no history of home health or SNF Rehab. Plan: Anticipating discharge home with spouse to transport when medically cleared. CM team will follow closely for coordination of discharge plans. TO Puentes Discharge Planning/Care Management CM Discharge Assessment Start: 05/28/25 06:36 Freq: Status: Active Protocol: Document 05/28/25 11:45 MW (Rec: 05/28/25 11:46 MW [id number]) Discharge Planning Assessment Assigned Discharge QUINN Tinajero Sex Worker Or Escort Provider Dr. Ebonie Hobson [facility]/Assigned Magen, Spouse Designee Name Contact Information [phone] Advance Directives? No Advance Directives No on File Prior Living House Arrangements Household Members spouse Type of Drives own vehicle transporation used prior to admit Independent with ADL Yes 's Is patient alert and Yes oriented? Caregiver for No Another Discharge Plan Home Transportation Spouse, Magen Arrangement Review Status In Process Please Provide Date 05/28/25 Initial DC Assessment Was Performed Next Review Type Continued Stay Review
--- NOTE | 2025-05-28 14:02 | P.HP_ITS ---
History of Present Illness History of Present Illness Date Patient Seen: 05/28/25 Chief complaint: Pain everywhere, headache, fatigue RLL pneumonia Narrative: Chief complaint: Rigors chills malaise fatigue and loss of appetite secondary to right lower lobe pneumonia History of present illness: 05/28: 74-year-old female the grandchildren visiting coughs developed 3 days prior to admission (05/25) cough malaise severe fatigue fever to 103 rigors and chills sputum production Evaluation in the emergency department significant a large right middle lobe infiltrate white count of 8.8 which is double her baseline with 84% neutrophils she also has total bilirubin of 2.9 which is normally 1.2 Viral panel was negative including influenza and COVID Hospital course: 05/28: Patient feels significantly better after 1 dose of antibiotic in the emergency department was transported up to the floor has some return of her appetite as well still feeling very fatigued and having dyspnea with any movement Review of systems: No chest pain palpitations No paresthesia or paresis No loss of consciousness Physical examination: Ill appearing elderly female no acute physical distress HEENT unremarkable Lungs diminished breath sounds Heart sounds distant Abdomen nondistended Extremities no edema Alert and oriented Neurologic nonfocal Assessment and plan: Right middle lobe pneumonia with sick contacts likely community-acquired acute respiratory failure with hypoxia * Sputum g stain and culture * Rocephin doxycycline * Gentle IV fluids Type 2 diabetes insulin dependent * Exogenous insulin as needed COPD: * A steroid and bronchodilators Essential hypertension * Continue maintenance medications DVT prophylaxis: * Subcutaneous heparin Disposition: * Inpatient likely 4872 hours hospitalization required Time based billing: * 55 minutes were involved in evaluation of this patient including [id number] evaluation review of records objective laboratory and imaging findings including direct visualization of imaging [facility] Medical History (Updated 05/27/25 @ 23:50 by Gustavo Jaime DO) Sinusitis History of COPD URI (upper respiratory infection) Surgical History (Updated 02/09/25 @ 10:17 by Ebonie Hobson MD) History of bladder surgery History of appendectomy Social History household members: spouse Smoking Status: Former smoker alcohol intake: never Meds Home Medications and Allergies Home Medications ?Medication ?Instructions ?Recorded ?Confirmed ?Type aspirin 81 mg tablet,delayed 81 mg PO DAILY 10/03/21 1 07/27/24 History release (Adult Aspirin Regimen) loratadine 10 mg tablet (Claritin) 10 mg PO DAILY #14 tabs 10/03/21 05/27/25 Rx latanoprost 0.005 % eye drops 1 drp EYE-BOTH DAILY 03/2105/27/25 History tizanidine 2 mg capsule 2 mg PO Q8H PRN muscle spasm 02/04/24 05/27/25 History brimonidine 0.2 % eye drops 1 drp EYE-BOTH DAILY 03/0705/27/25 History blood-glucose sensor (Dexcom G7 #12 ea 04/20/24 Rx Sensor device) albuterol sulfate 1.25 mg/3 mL 1.25 mg (3 mL) inhalati on Q4-6H 06/12/24 05/27/25 Rx solution for nebulization PRN sob #90 mL albuterol sulfate 90 mcg/actuation 1 inh inhalation Q4 -6H PRN 06/16/24 05/27/25 Rx aerosol inhaler bronchospasm #8.5 grams rosuvastatin 20 mg tablet 20 mg PO DAILY #90 tabs 09/2605/27/25 Rx Nebulizer with tubing #1 ea 02/06/25 05/27/25 Rx zolpidem 5 mg tablet 5 mg PO BEDTIME PRN insomnia #90 03/22/25 05/27/25 Rx tabs fluticasone furoate 50 1 inh inhalation Q24H #60 ea 04/10/25 05/27/25 Rx mcg-vilanterol 25 mcg/dose inhalation powder (Breo Ellipta) doxepin 3 mg tablet 3 mg PO BEDTIME PRN sleep #3 0 tabs 04/23/25 05/27/25 Rx fluticasone propionate 220 1 puff inhalation BID #12 g davin 05/09/25 05/27/25 Rx mcg/actuation HFA aerosol inhaler tirzepatide 12.5 mg/0.5 mL 12.5 mg (0.5 mL) SUBCUT QWE EK #2 mL 05/21/25 05/27/25 Rx subcutaneous pen injector Allergies Allergy/AdvReac Type Severity Reaction Status Date / Time No Known Drug Allergies Allergy Verified 05/27/25 19:39 Exam Vital Signs (past 8 hours): - 05/28/25 06:30 05/28/25 06:31 05/28/25 06:31 Pulse Rate 77 76 Respiratory Rate 19 17 Blood Pressure 126/60 Pulse Oximetry 97 98 Oxygen Delivery Method Oxygen Flow Rate Fraction of Inspired Oxygen 05/28/25 07:00 05/28/25 07:00 05/28/25 07:30 Pulse Rate 78 79 Respiratory Rate 18 20 Blood Pressure 116/65 Pulse Oximetry 98 99 Oxygen Delivery Method Oxygen Flow Rate Fraction of Inspired Oxygen 05/28/25 07:31 05/28/25 07:31 05/28/25 08:00 Pulse Rate 79 Respiratory Rate 19 Blood Pressure 113/54 L 119/56 L Pulse Oximetry 99 Oxygen Delivery Method Oxygen Flow Rate Fraction of Inspired Oxygen 05/28/25 08:00 05/28/25 08:30 05/28/25 08:30 Pulse Rate 81 83 Respiratory Rate 17 19 Blood Pressure 128/60 Pulse Oximetry 99 99 Oxygen Delivery Method Oxygen Flow Rate Fraction of Inspired Oxygen 05/28/25 09:00 05/28/25 09:00 05/28/25 09:05 Pulse Rate 87 98 H Respiratory Rate 21 20 Blood Pressure 130/57 L Pulse Oximetry 99 98 Oxygen Delivery Method Nasal Cannula Oxygen Flow Rate 2 Fraction of Inspired Oxygen 28 05/28/25 09:30 05/28/25 10:00 05/28/25 10:30 Pulse Rate 94 H 100 H 102 H Respiratory Rate 20 27 H 28 H Blood Pressure Pulse Oximetry 96 93 94 Oxygen Delivery Method Nasal Cannula Oxygen Flow Rate 2 Fraction of Inspired Oxygen 05/28/25 11:00 05/28/25 11:30 05/28/25 12:28 Pulse Rate 98 H 97 H 90 Respiratory Rate 29 H 27 H 17 Blood Pressure 118/55 L Pulse Oximetry 94 94 94 Oxygen Delivery Method Nasal Cannula Oxygen Flow Rate 2 0 Fraction of Inspired Oxygen Fraction of Inspired Oxygen 28 SaO2/FiO2 Ratio 350 Oxygen Delivery Method Nasal Cannula Oxygen Flow Rate 0 Objective Labs 05/27/25 20:04 05/27/25 20:04 Labs: Laboratory Results - last 24 hr 05/27/25 05/27/25 05/27/25 19:53 20:04 22:00 WBC 8.8 RBC 4.01 Hgb 12.4 Hct 36.3 MCV 90.6 MCH 31.0 MCHC 34.2 RDW 13.4 Plt Count 176 Neut % (Auto) 84.2 H Lymph % (Auto) 7.6 L [place] % (Auto) 7.9 Eos % (Auto) 0.1 L Baso % (Auto) 0.2 Neut # (Auto) 7400 H Lymph # (Auto) 700 L [place] # (Auto) 700 Eos # (Auto) 0 Baso # (Auto) 0 PT 14.4 H INR 1.3 APTT 28 Sodium 136 L Potassium 3.9 Chloride 102 Carbon Dioxide 24 BUN 13 Creatinine 0.75 Estimated GFR > 60 BUN/Creatinine Ratio 17.3 Glucose 146 H Lactate 1.1 Calcium 9.2 Magnesium 1.8 Total Bilirubin 2.9 H AST 33 ALT 25 Alkaline Phosphatase 65 Total Creatine Kinase 27 L Troponin I < 0.012 NT-Pro-B Natriuret Pep 252 H Total Protein 7.7 Albumin 4.3 Globulin 3.4 Albumin/Globulin Ratio 1.3 Lipase 36 Procalcitonin 0.205 Urine Color Yellow Urine Appearance Clear Urine pH 5.0 Ur Specific [place] 1.010 Urine Protein Negative Urine Glucose (UA) Negative Urine Ketones 1+ H Urine Occult Blood Trace-intact Urine Nitrate Negative Urine Bilirubin Negative Urine Urobilinogen 4.0 H Ur Leukocyte Esterase Negative Urine RBC 0-1/hpf Urine WBC None seen Ur Squamous Epith Cells 0-1 /hpf Urine Bacteria None seen Ur Culture Indicated? Cult not indicated Vol Urine Centrifuged 10ml (spun) Chlamy pneumoniae PCR Not detected Adenovirus (PCR) Not detected B. pertussis DNA (PCR) Not detected B.parapertussis DNA PCR Not detected Coronavirus OC43 (PCR) Not detected Coronavirus HKU1 (PCR) Not detected Coronavirus 229E (PCR) Not detected SARS-CoV-2 (PCR) Not detected Coronavirus NL63 (PCR) Not detected Human Metapneumovir PCR Not detected Influenza Type A (PCR) Not detected Influenza Type B (PCR) Not detected M. pneumoniae (PCR) Not detected Parainfluenza 1 (PCR) Not detected Parainfluenza 2 (PCR) Not detected Parainfluenza 3 (PCR) Not detected Parainfluenza 4 (PCR) Not detected RSV (PCR) Not detected Entero/Rhino (PCR) Not detected Assessment & Plan Time-Based Coding :: [TOTAL MINUTES] spent with patient and on the chart (including review of chart, obtaining history, exam, reviewing outside data, placing orders, documenting exam and treatment plan, and counseling patient) on [DATE]. Quality VTE Deep Vein Thrombosis/Pulmonary Embolism Present on Admission: No
[2025-05-28 18:39] LABS: Blood Urea Nitrogen 14 mg/dL (7-17); Calcium 8.5 mg/dL (8.4-10.2); Carbon Dioxide 23 mmol/L (22-32); Chloride 106 mmol/L (98-107); Estimated Glomerular Filt Rate > 60 mL/min (>60); Glucose 192 mg/dL (70-99); HEMOLYSIS < 15 (0-50); Potassium 4.2 mmol/L (3.4-5.1); Sodium 137 mmol/L (137-145)
--- NOTE | 2025-05-28 19:24 | PC.NURSE ---
Patient admitted for pneumonia, she has been coughing up yellow phlegm. On NS at 75cc/hr. Up to the bathroom with sba. She is sleeping now.
[2025-05-29] VITALS: BP 115/55; PULSE 92; RESP 18; TEMP 36.2; O2SAT 95
[2025-05-29] MEDS: DOXYCYCLINE 100 MG in SODIUM CHLORIDE 0.9% 100 ML IV ×2 (01:16→12:33)
[2025-05-29 04:00] VITALS: BP 115/57; PULSE 91; RESP 18; TEMP 36.4; O2SAT 96
[2025-05-29 07:37] VITALS: PULSE 82; RESP 18; O2SAT 97
[2025-05-29] MEDS: BUDESONIDE 0.5 MG/2 ML NEB INH (07:37)
[2025-05-29] MEDS: ALBUTEROL 2.5 MG/3 ML NEB (ADULT) INH (07:37)
[2025-05-29 07:45] VITALS: BP 98/44; PULSE 79; RESP 16; TEMP 36.6; O2SAT 96
[2025-05-29] MEDS: ASPIRIN EC 81 MG TABLET PO (08:14)
[2025-05-29] MEDS: LORATADINE 10 MG TABLET PO (08:14)
[2025-05-29] MEDS: HEPARIN 5,000 UNIT/ML VIAL 5000 UNIT SUBCUT (08:14)
[2025-05-29] MEDS: SODIUM CHLORIDE 0.9% 1,000 ML 75 ML IV (10:31)
[2025-05-29 12:46] VITALS: BP 121/51; PULSE 87; RESP 17; TEMP 35.9; O2SAT 95
--- NOTE | 2025-05-29 12:50 | P.DS_ITS ---
History of Present Illness History of Present Illness Date Patient Seen: 05/29/25 Chief complaint: Pain everywhere, headache, fatigue RLL pneumonia Narrative: Chief complaint: Rigors chills malaise fatigue and loss of appetite secondary to right lower lobe pneumonia History of present illness: 05/28: 74-year-old female the grandchildren visiting coughs developed 3 days prior to admission (05/25) cough malaise severe fatigue fever to 103 rigors and chills sputum production Evaluation in the emergency department significant a large right middle lobe infiltrate white count of 8.8 which is double her baseline with 84% neutrophils she also has total bilirubin of 2.9 which is normally 1.2 Viral panel was negative including influenza and COVID Hospital course: 05/28: Patient feels significantly better after 1 dose of antibiotic in the emergency department was transported up to the floor has some return of her appetite as well still feeling very fatigued and having dyspnea with any movement 05/29: Patient is walking up and down the hallways with normal oxygenation no fevers or chills minimal cough discharge to home Review of systems: No chest pain palpitations No paresthesia or paresis No loss of consciousness Physical examination: Ill appearing elderly female no acute physical distress HEENT unremarkable Lungs diminished breath sounds Heart sounds distant Abdomen nondistended Extremities no edema Alert and oriented Neurologic nonfocal Assessment and plan: Right middle lobe pneumonia with sick contacts likely community-acquired acute respiratory failure with hypoxia * Switch to oral cefdinir and doxycycline and discharged home Type 2 diabetes insulin dependent * Exogenous insulin as needed COPD: * A steroid and bronchodilators Essential hypertension * Continue maintenance medications DVT prophylaxis: * Subcutaneous heparin Disposition: * Discharge to home Time based billing: * 35 minutes were involved in evaluation of this patient including [id number] evaluation review of records objective laboratory and imaging findings including direct visualization of imaging Discharge Providers Provider Date of admission: 05/27/25 23:56 Discharge Date: 05/29/25 Primary care physician: Ebonie Hobson MD Discharge provider: Ahsan Montenegro MD Exam Vital Signs (past 8 hours): - 05/29/25 07:37 05/29/25 07:45 Temperature 97.9 F Pulse Rate 82 79 Respiratory Rate 18 16 Blood Pressure 98/44 L Pulse Oximetry 97 96 Oxygen Delivery Method Nasal Cannula Oxygen Flow Rate 2 1.5 Fraction of Inspired Oxygen 28 Fraction of Inspired Oxygen 28 SaO2/FiO2 Ratio 346 Oxygen Delivery Method Nasal Cannula Oxygen Flow Rate 1.5 Objective Labs 05/27/25 20:04 05/28/25 18:17 Labs: Laboratory Results - last 24 hr 05/28/25 05/28/25 18:17 20:33 Sodium 137 Potassium 4.2 Chloride 106 Carbon Dioxide 23 BUN 14 Creatinine 0.63 Estimated GFR > 60 BUN/Creatinine Ratio 22.2 H Glucose 192 H POC Whole Bld Glucose 183 H Calcium 8.5 PFSH Medical History (Updated 05/27/25 @ 23:50 by Gustavo Jaime DO) Sinusitis History of COPD URI (upper respiratory infection) Surgical History (Updated 02/09/25 @ 10:17 by Ebonie Hobson MD) History of bladder surgery History of appendectomy Social History household members: spouse Smoking Status: Former smoker alcohol intake: never Discharge Plan Discharge Plan Patient Disposition: Home Discharge orders & Medications Prescriptions: New doxycycline hyclate 100 mg capsule 100 mg PO BID Qty: 14 0RF cefdinir 250 mg/5 mL suspension for reconstitution 300 mg PO BID Qty: 100 0RF Continued aspirin [Adult Aspirin Regimen] 81 mg tablet,delayed release (DR/EC) 81 mg PO DAILY loratadine [Claritin] 10 mg tablet 10 mg PO DAILY Qty: 14 0RF tizanidine 2 mg capsule 2 mg PO Q8H PRN (Reason: muscle spasm) latanoprost 0.005 % drops 1 drp EYE-BOTH DAILY albuterol sulfate 1.25 mg/3 mL solution for nebulization 1.25 mg inhalation Q4-6H PRN (Reason: sob) Qty: 90 2RF doxepin 3 mg tablet 3 mg PO BEDTIME PRN (Reason: sleep) Qty: 30 2RF brimonidine 0.2 % drops 1 drp EYE-BOTH DAILY (DME) Dexcom G7 Sensor Device See Rx Instructions .Route Qty: 12 3RF Rx Instructions: As directed albuterol sulfate 90 mcg/actuation HFA aerosol inhaler 1 inh inhalation Q4-6H PRN (Reason: bronchospasm) Qty: 8.5 3RF rosuvastatin 20 mg tablet 20 mg PO DAILY Qty: 90 3RF (DME) Nebulizer with tubing See Rx Instructions .Route .MEDSUPPLY Qty: 1 0RF Rx Instructions: As directed zolpidem 5 mg tablet 5 mg PO BEDTIME PRN (Reason: insomnia) Qty: 90 3RF Breo Ellipta 50-25 mcg/dose blister with device 1 inh inhalation Q24H Qty: 60 1RF fluticasone propionate 220 mcg/actuation HFA aerosol inhaler 1 puff inhalation BID Qty: 12 2RF tirzepatide 12.5 mg/0.5 mL pen injector 12.5 mg SUBCUT QWEEK Qty: 2 0RF Follow up/Referrals: Ebonie Hobson MD [Primary Care Provider, Family Practice] Visit Report/Discharge Packet Stand Alone Forms: Patient Portal/API, Stroke Signs & Symptoms Discharge Data Primary Care Provider: Ebonie Hobson Quality VTE Deep Vein Thrombosis/Pulmonary Embolism Present on Admission: No
== END 2025-05-29 14:42 | disposition home or self-care (01) | DRG 193 ==
LOC: ED 23:50 → AC 23:56
PROVIDERS: Admitting Provider Internal Medicine; Emergency Provider Student in an Organized Health Care Education/Training Program; PCP Family Medicine; Referring Provider Student in an Organized Health Care Education/Training Program; Visit Provider Internal Medicine
DX: J18.9 Pneumonia, unspecified organism (principal); J96.01 Acute respiratory failure with hypoxia; J44.0 Chronic obstructive pulmonary disease with (acute) lower respiratory infection; E11.9 Type 2 diabetes mellitus without complications; I10 Essential (primary) hypertension; G47.00 Insomnia, unspecified; E78.5 Hyperlipidemia, unspecified; Z90.49 Acquired absence of other specified parts of digestive tract; Z87.891 Personal history of nicotine dependence; Z79.4 Long term (current) use of insulin; Z79.85 Long-term (current) use of injectable non-insulin antidiabetic drugs; Z86.79 Personal history of other diseases of the circulatory system
CPT/HCPCS: 36415; 71045; 74177; 80048; 80053; 81001; 82550; 82962; 83605; 83690; 83735; 83880; 84145; 84484; 85025; 85610; 85730; 87040; 87633; 93005; 94640; 94762; 96365; 96367; 96375; 99285; J0131; J0696; J1644; J2272; J2405; J7030; J7050; J7613; Q9967